=== PATIENT | female | born 1995 | race Caucasian/White ===

== ENCOUNTER 2016-04-17 20:11 | Emergency (ER) | payer OTHER ==
[~2016-04-17] VITALS: Ht 165.1 cm; Wt 81.3 kg
[2016-04-17 20:22] VITALS: TEMP 37; Ht 165.1 cm; Wt 81.3 kg
[2016-04-17] MEDS ORDERED: BCPILLS PO (20:52)
[2016-04-17] MEDS ORDERED: SERT-234 PO (20:52)
--- NOTE | 2016-04-17 20:55 | EMERGENCY ROOM VISIT NOTE ---
History First contact with patient: 20:32 Chief Complaint: RIB PAIN Stated Complaint: RIB PAIN History of Present Illness The patient is a 20 year old female who presents to the Emergency Room with complaints of left rib pain. The patient states she has had a cough for the last 1 month. She states she has had ongoing left-sided pleuritic pain. She states that today she coughed and felt a pop in the left lateral and anterior ribs. She has had severe pain since then. She rates her discomfort an 8/10. She denies any fevers. She denies any earache, sore throat. She denies any abdominal pain, nausea or vomiting. The patient does take control pills. She denies any personal or family history of coagulopathy. Review of Systems A 10 system review of systems was completed with positives and pertinent negatives listed in the HPI. Past Medical/Surgical History Patient denies Social History Smoking Status: Never Smoker Housing Status: lives with family Current/Historical Medications Scheduled Control Pills ( Control Pills), 1 TAB PO DAILY Levofloxacin (Levaquin), 750 MG PO DAILY Sertraline (Zoloft), 200 MG PO QAM Scheduled PRN Oxycodone/Acetaminophen 5MG/325MG (Percocet 5MG/325MG), 1-2 TABS PO Q6 PRN for Pain Allergies Coded Allergies: Nickel (Verified Allergy, Intermediate, Rash, 04/17/16) Physical Exam Vital Signs Date Time Temp Pulse Resp B/P Pulse Ox O2 Delivery O2 Flow Rate FiO2 04/18/16 00:03 93 16 112/73 96 Room Air 04/17/16 23:00 97 18 105/69 98 Room Air 04/17/16 20:22 37.0 103 20 107/74 98 Room Air Physical Exam VITALS: Vitals are noted on the nurse's note and reviewed by myself. Vital signs stable. The patient is initially tachycardic. GENERAL: This is a 20-year-old female in no acute distress, nondiaphoretic, well -developed well-nourished. SKIN: The skin was without rashes, erythema, edema, or bruising. There is no tenting of the skin. Capillary reflex less than 2 seconds. HEAD: Normocephalic atraumatic. EARS: External auditory canals clear, tympanic membranes pearly williamson without erythema or effusion bilaterally. EYES: Pupils equal round and reactive to light and accommodation. Conjunctivae without injection, sclerae without icterus. Extraocular movements intact. NOSE: Patent, turbinates without inflammation or discharge. MOUTH: Mucous membranes moist. Tonsils are not enlarged. Pharynx without erythema or exudate. Uvula midline. Airway patent. Tongue does not deviate. NECK: Supple without nuchal rigidity. No JVD. HEART: Regular rate and rhythm without murmurs gallops or rubs. LUNGS: Rales in the left base. No retractions or accessory muscle use. The patient is point tender in the left anterior lateral ribs. ABDOMEN: Positive bowel sounds x 4. Soft, nontender, without masses or organomegaly. Burks sign negative. MUSCULOSKELETAL: No muscle atrophy, erythema, or edema noted. Full range of motion in all extremities. Normal gait. Strength 5/5 throughout. NEURO: Patient was alert and oriented to person place and time. No focal neurological deficits. Medical Decision & Procedures ER Provider Diagnostic Interpretation: [~ rep ct add3]] LEFT RIBS UNILATERAL WITH PA CHEST CLINICAL HISTORY: left rib pain pain COMPARISON STUDY: None FINDINGS: Nondisplaced cortical fracture left 10th rib. All remaining ribs are unremarkable. Lungs are clear. No evidence pneumothorax. IMPRESSION: Nondisplaced incomplete cortical fracture left 10th rib laterally CTA of the chest was obtained and read by stat read and reveals small consolidation versus atelectasis in the left lower lobe suspicious for pneumonia or aspiration There is a 3 mm pulmonary nodule in the right middle lobe; the patient was advised of this and encouraged to have follow-up Laboratory Results 04/17/16 20:56 Red Blood Count 4.78, Mean Corpuscular Volume 87.4, Mean Corpuscular Hemoglobin 31.2, Mean Corpuscular Hemoglobin Concent 35.6, Mean Platelet Volume 10.6, Neutrophils (%) (Auto) 60.0, Lymphocytes (%) (Auto) 27.3, Monocytes (%) (Auto) 8.0, Eosinophils (%) (Auto) 4.2, Basophils (%) (Auto) 0.2, Neutrophils # (Auto) 5.17, Lymphocytes # (Auto) 2.36, Monocytes # (Auto) 0.69, Eosinophils # (Auto) 0.36, Basophils # (Auto) 0.02 04/17/16 20:56 Test 04/17/16 20:56 04/17/16 21:08 White Blood Count 8.63 K/uL (4.8-10.8) Red Blood Count 4.78 M/uL (4.2-5.4) Hemoglobin 14.9 g/dL (12.0-16.0) Hematocrit 41.8 % (37-47) Mean Corpuscular Volume 87.4 fL (80-100) Mean Corpuscular Hemoglobin 31.2 pg (25-34) Mean Corpuscular Hemoglobin Concent 35.6 g/dl (32-36) Platelet Count 302 K/uL (130-400) Mean Platelet Volume 10.6 fL (7.4-10.4) Neutrophils (%) (Auto) 60.0 % Lymphocytes (%) (Auto) 27.3 % Monocytes (%) (Auto) 8.0 % Eosinophils (%) (Auto) 4.2 % Basophils (%) (Auto) 0.2 % Neutrophils # (Auto) 5.17 K/uL (1.4-6.5) Lymphocytes # (Auto) 2.36 K/uL (1.2-3.4) Monocytes # (Auto) 0.69 K/uL (0.11-0.59) Eosinophils # (Auto) 0.36 K/uL (0-0.5) Basophils # (Auto) 0.02 K/uL (0-0.2) RDW Standard Deviation 44.3 fL (36.4-46.3) RDW Coefficient of Variation 13.7 % (11.5-14.5) Immature Granulocyte % (Auto) 0.3 % Immature Granulocyte # (Auto) 0.03 K/uL (0.00-0.02) Anion Gap 9.0 mmol/L (3-11) Est Creatinine Clear Calc Drug Dose 101.9 ml/min Estimated GFR () 103.2 Estimated GFR (Non- 89.0 BUN/Creatinine Ratio 11.0 (10-20) Calcium Level 9.6 mg/dl (8.5-10.1) Total Bilirubin 0.3 mg/dl (0.2-1) Aspartate Amino Transf (AST/SGOT) 19 U/L (15-37) Alanine Aminotransferase (ALT/SGPT) 20 U/L (12-78) Alkaline Phosphatase 84 U/L (45-117) Total Protein 8.7 gm/dl (6.4-8.2) Albumin 3.9 gm/dl (3.4-5.0) Globulin 4.8 gm/dl (2.5-4.0) Albumin/Globulin Ratio 0.8 (0.9-2) Bedside D-Dimer > 450 ng/mlFEU (0-450) Bedside Troponin I 0.000 ng/ml (0-0.045) Medications Administered Medications (Trade) Dose Ordered Sig/Pete Route Start Time Stop Time Status Last Admin Dose Admin Levofloxacin (Levaquin Tab) 750 mg NOW STAT PO 04/17/16 23:58 04/17/16 23:59 DC 04/18/16 00:09 750 MG Oxycodone/ Acetaminophen (Percocet 5/ 325MG Home Pack) 1 homepack UD ONCE PO 04/18/16 00:00 04/18/16 00:01 DC 04/18/16 00:09 1 HOMEPACK ECG Indication: chest pain Rhythm: normal sinus Findings: no acute ischemic change ED Course The patient was seen and examined. Previous visits were reviewed. The patient does not have a fever or leukocytosis. She does not have any significant electrolyte abnormality. [id number] troponin was 0. [id number] d-dimer was elevated Chest x-ray suggests a left lateral 10th rib fracture CTA of the chest suggest pneumonia The patient will be treated with Levaquin. She declined pain medication while in the emergency department but did except pain medication for home. She was given a take-home pack of Percocet as well as a prescription. The patient should follow-up with her family doctor on Friday if no improvement. She should return to the ER sooner with any worsening symptoms. The case was discussed with who agrees with the assessment and treatment plan. Medical Decision DIFFERENTIAL DIAGNOSIS: Aortic dissection, myocarditis, pericarditis, cervical disc disease, costochondritis, herpes zoster, rib fracture, pleuritis, pneumonia , pulmonary embolus, tension pneumothorax, anxiety disorder, somatoform disorder , choledocholithiasis, status, esophagitis, esophageal spasm, esophageal reflux , esophageal rupture, pancreatitis, peptic ulcer disease, cardiac ischemia, ST elevation [place], acute coronary syndrome, arrhythmia, coronary artery vasospasm. vavular heart disease, coronary artery disease, among others. [place] Drug Monitoring Program Search Results: patient reviewed within database, no issues identified Impression Primary Impression: Pneumonia Additional Impression: Rib fracture Departure Information Dispostion Home / Self-Care Condition GOOD Prescriptions Oxycodone/Acetaminophen 5MG/325MG (PERCOCET 5MG/325MG) Tab 1-2 TABS PO Q6 Y for Pain, #24 TAB For Initial Treatment Prov: Loan Harris PA-C 04/18/16 Levofloxacin (Levaquin) 750 Mg Tab 750 MG PO DAILY for 7 Days, #7 TAB Prov: Loan Harris PA-C 04/18/16 Referrals No Doctor, Assigned (PCP) Patient Instructions ED Fx Rib, ED Nodule Solitary Pulmonary, ED Pneumonia, [facility] Additional Instructions Levaquin once a daily for 7 days to treat pneumonia Percocet 1-2 tablet every 4-6 hours as needed for worse pain. No driving or alcohol use with Percocet and do not take with Tylenol. Follow up with your family doctor next week if no improvement Return to the emergency Department with any worsening symptoms Problem Qualifiers Primary Impression: Pneumonia Additional Impression: Rib fracture Encounter type: initial encounter Rib fracture type: single rib Fracture type: closed Laterality: left Qualified Codes: S22.32XA - Fracture of one rib, left side, initial encounter for closed fracture
[2016-04-17 21:19] LABS: BASO % 0.2 %; BASO ABS # 0.02 K/uL (0-0.2); COMPLETE YES; EOS % 4.2 %; HEMATOCRIT 41.8 % (37-47); IG% 0.3 %; LYMPH % 27.3 %; LYMPH ABS # 2.36 K/uL (1.2-3.4); MEAN CELL VOLUME 87.4 fL (80-100); MEAN CORPUSCULAR HEMOGLOBIN 31.2 pg (25-34); MEAN CORPUSCULAR HGB CONC 35.6 g/dl (32-36); MEAN PLATELET VOLUME 10.6 fL (7.4-10.4); PLATELET COUNT 302 K/uL (130-400); RED BLOOD COUNT 4.78 M/uL (4.2-5.4); WHITE BLOOD COUNT 8.63 K/uL (4.8-10.8)
--- NOTE | 2016-04-17 21:28 | DIAGNOSTIC IMAGING REPORT ---
LEFT RIBS UNILATERAL WITH PA CHEST CLINICAL HISTORY: left rib pain pain COMPARISON STUDY: None FINDINGS: Nondisplaced cortical fracture left 10th rib. All remaining ribs are unremarkable. Lungs are clear. No evidence pneumothorax. IMPRESSION: Nondisplaced incomplete cortical fracture left 10th rib laterally Electronically signed by: Epifanio Isaacs M.D. 04/17/2016 9:26 PM Dictated Date/Time: 04/17/2016 9:25 PM
[2016-04-17 21:37] LABS: CALCIUM 9.6 mg/dl (8.5-10.1); CREATININE 0.92 mg/dl (0.60-1.20); POTASSIUM 3.7 mmol/L (3.5-5.1)
[2016-04-17 21:40] LABS: ALB/GLOB RATIO 0.8 (0.9-2)
[2016-04-17] MEDS ORDERED: OPTIRAY 320 IV PRN (22:15)
[2016-04-17] MEDS ORDERED: LEVOFLOXACIN 250 MG TAB PO STA (23:58)
[2016-04-18] MEDS ORDERED: LEVO1TAB35 PO
[2016-04-18] MEDS ORDERED: OXYC-57 PO
[2016-04-18] MEDS ORDERED: PERCOCET HOME PACK PO ONE
[2016-04-18 00:03] VITALS: BP 112/73; PULSE 93; O2SAT 96
--- NOTE | 2016-04-18 07:42 | DIAGNOSTIC IMAGING REPORT ---
CHEST CTA for PULMONARY ARTERIES CT DOSE: 383.62 mGy.cm HISTORY: Elevated d-dimer. Pleuritic chest pain. TECHNIQUE: Multiaxial CT images of the chest were performed following the intravenous administration of contrast to evaluate the pulmonary arteries. Maximal intensity projection images were also obtained. COMPARISON STUDY: Chest and left RIBS 04/17/2016. FINDINGS: Normal caliber thoracic ureter with no evidence for dissection. Motion artifact obscures some of the bilateral lower lobe segmental pulmonary arteries. However, the remaining pulmonary arteries are patent with no evidence for pulmonary embolus. Trace right pleural effusion. No pericardial effusion. The visualized liver is unremarkable. Spleen is partially visualized but appears to be mildly enlarged. A few mildly enlarged left hilar lymph nodes. No rib fractures identified. Patchy left lower lobe consolidation with a few tree-in-bud nodular opacities. This likely represents a pneumonia. No pneumothorax. The central airways are patent. IMPRESSION: 1. No evidence for pulmonary embolus with limitations as described above. 2. Patchy areas of consolidation and tree-in-bud nodular opacities within the left lower lobe. This likely represents a pneumonia. 3. Trace right pleural effusion. Electronically signed by: Domingo Stanley M.D. 04/18/2016 7:40 AM Dictated Date/Time: 04/18/2016 7:31 AM
== END 2016-04-18 00:14 | disposition home or self-care (01) ==
LOC: C.EDB 20:20 → C.EDD 04-18 00:14
DX: J18.9 Pneumonia, unspecified organism (principal); S22.32XA Fracture of one rib, left side, initial encounter for closed fracture; X58.XXXA Exposure to other specified factors, initial encounter

== ENCOUNTER → 2016-08-19 | Outpatient (CLI) | payer OTHER ==
[~2016-08-19] MED LIST: BCPILLS PO; OXYC-57 PO; SERT-234 PO
[2016-08-19 14:00] LABS: ALT/SGPT 35 U/L (12-78); AST/SGOT 23 U/L (15-37); BLOOD UREA NITROGEN 13 mg/dl (7-18); BUN/CREATININE RATIO 12.9 (10-20); CARBON DIOXIDE 27 mmol/L (21-32); CHLORIDE 104 mmol/L (98-107); CHOLESTEROL 191 mg/dl (0-200); CREATININE 0.99 mg/dl (0.60-1.20); GLUCOSE,FASTING 79 mg/dl (70-99); POTASSIUM 3.7 mmol/L (3.5-5.1); SODIUM 139 mmol/L (136-145); TRIGLYCERIDES 56 mg/dl (0-150); VERY LOW DENSITY LIPOPROT CALC 11 mg/dl
[2016-08-19 14:03] LABS: ALB/GLOB RATIO 1.1 (0.9-2); ALKALINE PHOSPHATASE 68 U/L (45-117); CHOLESTEROL/HDL RATIO 2.9; HDL CHOLESTEROL 65 mg/dl; LDL CHOLESTEROL CALCULATED 115 mg/dl
== END | disposition home or self-care (01) ==
LOC: C.LABPBG 07:46
PROVIDERS: ATTEND Physician Assistant
DX: Z00.00 Encounter for general adult medical examination without abnormal findings (principal)

== ENCOUNTER → 2017-02-14 | Outpatient (CLI) | payer OTHER ==
[~2017-02-14] MED LIST changes: -OXYC-57 PO
[2017-02-14 13:08] LABS: BLOOD UREA NITROGEN 12 mg/dl (7-18); BUN/CREATININE RATIO 12.2 (10-20); CALCIUM 8.8 mg/dl (8.5-10.1); CARBON DIOXIDE 29 mmol/L (21-32); CHLORIDE 104 mmol/L (98-107); CHOLESTEROL 206 mg/dl (0-200); CREATININE 0.99 mg/dl (0.60-1.20); GLUCOSE,FASTING 87 mg/dl (70-99); POTASSIUM 3.9 mmol/L (3.5-5.1); SODIUM 137 mmol/L (136-145); TRIGLYCERIDES 113 mg/dl (0-150); VERY LOW DENSITY LIPOPROT CALC 23 mg/dl
[2017-02-14 13:11] LABS: CHOLESTEROL/HDL RATIO 2.6; HDL CHOLESTEROL 78 mg/dl; LDL CHOLESTEROL CALCULATED 105 mg/dl
== END | disposition home or self-care (01) ==
LOC: C.LABPBG 07:38
PROVIDERS: ATTEND Physician Assistant
DX: Z00.00 Encounter for general adult medical examination without abnormal findings (principal)